=== PATIENT | female | born 1950 | race Caucasian/White ===

== ENCOUNTER 2024-08-15 06:58 | Emergency (ER) | payer MEDICARE, OTHER ==
[~2024-08-15] VITALS: Ht 157.5 cm; Wt 55.0 kg
[2024-08-15] MEDS ORDERED: NORVASC5 MG PO (07:15)
[2024-08-15] MEDS ORDERED: CEFTRIAXONE SODIUM 2 GM VIAL ONE (07:28)
[2024-08-15] MEDS ORDERED: SODIUM CHLORIDE 0.9% 1,650 ML IV PRN (07:30)
[2024-08-15] MEDS ORDERED: CEFTRIAXONE SODIUM 2 GM in SODIUM CHLORIDE 0.9% 100 ML IV ONE (07:30)
[2024-08-15 07:52] LABS: EOSINOPHILS 0.1 % (0-6); HEMOGLOBIN 12.3 g/dL (12.0-18.0); LYMPHOCYTES 1.2 % (24-44); MCH 31.1 (27-36); MCHC 33.4 g/dl (30-36); MCV 93.1 fl (81-99); MONOCYTES 1.4 % (0-12); NEUTROPHILS 97.3 % (39-80); PLATELET COUNT 197 K/uL (140-440); RBC 3.97 M/ul (4.3-5.7); RDW 13.5 (10.5-15.0)
[2024-08-15 07:56] LABS: BILIRUBIN, URINE POSITIVE (negative); BLOOD/HGB, URINE NEGATIVE (Negative); KETONE, URINE NEGATIVE (Negative); LEUK ESTERASE, URINE TRACE (negative); NITRITE, URINE NEGATIVE (negative); PH, URINE 5.5 (5-7)
[2024-08-15] MEDS ORDERED: NOREPINEPHRINE BITARTRATE 250 ML IV SCH (08:00)
[2024-08-15 08:11] LABS: ALBUMIN 2.8 g/dL (3.4-5.0); ALBUMIN/GLOBULIN RATIO 0.72 (1.1-2.4); ANION GAP 22.6 (7-21); BILIRUBIN, TOTAL 0.5 mg/dL (0.2-1.0); BUN/CREATININE RATIO 7.53 (6.0-28.6); CREATININE, SERUM 2.92 mg/dL (0.55-1.02); POTASSIUM 3.6 mmol/L (3.5-5.1); PROTEIN, TOTAL 6.7 g/dL (6.4-8.2)
[2024-08-15 08:16] LABS: LACTIC ACID, BLOOD 9.6 mmol/L (0.4-2.0)
[2024-08-15 08:19] LABS: INR 1.21 (0.80-1.30); PARTIAL THROMBOPLASTIN TIME 32.5 Sec (22.9-41.3); PROTIME 15.2 Sec (11.2-14.2)
[2024-08-15 08:27] LABS: RED BLOOD CELLS, URINE 0-1 /hpf (0-5)
[2024-08-15 08:28] LABS: BACTERIA, URINE RARE /hpf (negative); CASTS, URINE NONE SEEN \\lpf; COLLECTION TYPE, URINE CATH; CRYSTALS, URINE NONE SEEN (0-1+); EPITHELIAL CELLS, URINE OCCASIONAL /lpf (0-1+); REFLEX CULTURE, URINE Yes (No)
[2024-08-15 08:33] LABS: CORONAVIRUS COVID-19 AG NEGATIVE (NEGATIVE); INFLUENZA A AG NEGATIVE (NEGATIVE); INFLUENZA B AG NEGATIVE (NEGATIVE)
[2024-08-15] MEDS ORDERED: PIPERACILLIN/TAZOBACTAM 4.5 GM VIAL ONE (09:52)
[2024-08-15] MEDS ORDERED: PIPERACILLIN/TAZOBACTAM 4.5 GM in SODIUM CHLORIDE 0.9% 100 ML IV ONE (10:00)
[2024-08-15] MEDS ORDERED: VANCOMYCIN HCL 1,500 MG in DEXTROSE 5% 500 ML IV ONE (10:00)
[2024-08-15] MEDS ORDERED: DAPTOmycin 500 MG/10 ML VIAL IV ONE (10:30)
[2024-08-15] MEDS ORDERED: SODIUM CHLORIDE 0.9% 500 ML IV PRN (11:00)
[2024-08-15 12:47] VITALS: BP 98/61
--- NOTE | 2024-08-16 12:15 | EKG ---
[facility] [address] [facility] [place] [address] Signed Normal sinus rhythm Cannot rule out Anterior infarct , age undetermined Abnormal ECG No previous ECGs available Confirmed by Renny Rivera DO ([id number]) on 08/16/2024 12:14:53 PM Electronically Signed By: RENNY RIVERA DO 08/16/24 1215 PATIENT NAME: DANIA SWENSON Electrocardiogram DATE OF : 52 PHYSICIAN: RENNY RIVERA DO REPORT #: [id number] REPORT IS CONFIDENTIAL AND NOT TO BE RELEASED WITHOUT AUTHORIZATION
== END 2024-08-15 12:47 | disposition short-term general hospital (02) ==
LOC: ED 06:58
PROVIDERS: Emergency Medicine
DX: A41.9 Sepsis, unspecified organism (principal); R65.21 Severe sepsis with septic shock; N17.9 Acute kidney failure, unspecified; I10 Essential (primary) hypertension; Z88.2 Allergy status to sulfonamides; Z79.899 Other long term (current) drug therapy
CPT/HCPCS: 36415; 51702; 70490; 71045; 71250; 74176; 80053; 81001; 83605; 85025; 85610; 85730; 87040; 87077; 87088; 87186; 93005; 93010; 99285-25; A4311; J0696; J0878; J2543; J7040